=== PATIENT | male | born 1940 | race Caucasian/White ===

== ENCOUNTER → 2016-02-21 | Outpatient (CLI) | payer OTHER ==
[~2016-02-21] MED LIST: AZILECT1 MG PO; COUMADIN 3 MG TA3 M1 PO; COUMADIN 4 MG TA4 M1 PO; FINASTERIDE5 MG PO; LISINOPRIL20 MG PO; METFORMIN HCL500 MG PO; NEURONTIN 300300 M1 PO; PREVNAR 13 SYR0.5 ML IM; PRIMIDONE50 MG PO; SIMVASTATIN40 MG PO; SINEMET 25-1001 EAC1 PO; TOPROL XL25 MG PO; TRAMADOL 50 MG50 MG PO; VENLAFAXIN75 MG/1 T2 PO; VENLAFAXINE HC150 M1 PO
== END ==
LOC: RAD 10:35
DX: M19.011 Primary osteoarthritis, right shoulder (principal); M25.511 Pain in right shoulder; M25.512 Pain in left shoulder

== ENCOUNTER → 2016-11-14 | Outpatient (CLI) | payer OTHER ==
--- NOTE | ~2016-11-14 | 2DMMODE ---
[facility] [address] [place] [address] 2 D/M-MODE ECHOCARDIOGRAM Name: TK MURCIA [facility] [id number] Admission: 11/14/16 Attend Phys: Vicente Bejarano Discharge: Date of : 40 Date of Service: 11/14/16 1226 Report #: [id number] THIS REPORT FOR: //name// APPROVED REPORT Study performed: 11/14/2016 11:04:13 EXAM: Comprehensive 2D, Doppler, and color-flow Echocardiogram Patient Location: Out-Patient Room #: Echo lab Status: routine BSA: 2.13 HR: 91 bpm BP: 136/72 mmHg Other Information Study Quality: Adequate Indications Diabetes CAD 2D Dimensions RVDd: 33.37 mm LVEF(%): 24.74 (>50%) IVSd: 11.28 (7-11mm) LVOT Diam: 25.37 (18-24mm) LVDd: 56.56 mm PWd: 11.50 (7-11mm) Ascending Ao: 36.09 (22-36mm) LVDs: 50.01 (25-40mm) Aortic Root: 41.29 mm IVC: 19.00 mm Mabry's LVEF: 24.74 % Volumes Left Atrial Volume (Systole) Single Plane 4CH: 50.79 mL Single Plane 2CH: 70.18 mL LA ESV Index: 30.00 mL/m2 Aortic Valve AoV Peak Vikas.: 2.05 m/s AO Peak Gr.: 16.84 mmHg LVOT Max P.46 mmHg LVOT Max V: 0.78 m/s JOE Vmax: 1.93 cm2 Pulmonary Valve PV Peak Vikas.: 0.93 m/s PV Peak Gr.: 3.45 mmHg [facility] [place] [address] 2 D/M-MODE ECHOCARDIOGRAM Name: TK MURCIA [facility] Room #: [facility] [id number] Admission: 11/14/16 Attend Phys: Vicente Bejarano Discharge: Date of : 40 Date of Service: 11/14/16 1226 Report #: [id number] Left Ventricle Left ventricle is at the upper limits of normal. There is global hypokinesis of the left ventricle. There is normal left ventricular wall thickness. Left ventricular ejection fraction is moderately decreased. LVEF is 30-35%. This study is not technically sufficient to allow evaluation of the LV diastolic function. Right Ventricle The right ventricle is normal size. The right ventricular systolic function is normal. Atria The left atrium size is normal. The right atrium size is normal. Aortic Valve The aortic valve is normal in structure. Aortic valve is calcified. Mild aortic regurgitation. Mild aortic stenosis. Mitral Valve The mitral valve is normal in structure. There is no mitral valve regurgitation noted. No evidence of mitral valve stenosis. Tricuspid Valve The tricuspid valve is normal in structure. There is no tricuspid valve regurgitation noted. Pulmonic Valve The pulmonary valve is normal in structure. Trace pulmonic regurgitation. Great Vessels The aortic root is normal in size. IVC is normal in size and collapses >50% with inspiration. Pericardium There is no pericardial effusion. <Conclusion> Left ventricle is at the upper limits of normal. There is global hypokinesis of the left ventricle. Left ventricular ejection fraction is moderately decreased. LVEF is 30%. The aortic valve is normal in structure. Aortic valve is calcified. [facility] [address] [place] [address] 2 D/M-MODE ECHOCARDIOGRAM Name: TK MURCIANITH Room #: REG [facility]#: [id number] Admission: 11/14/16 Attend Phys: Vicente Bejarano Discharge: Date of : 40 Date of Service: 11/14/16 1226 Report #: [id number] Mild aortic regurgitation. Mild aortic stenosis. The mitral valve is normal in structure. The tricuspid valve is normal in structure. The pulmonary valve is normal in structure. Trace pulmonic regurgitation. <ELECTRONICALLY SIGNED> By: Vicente Montague MD 11/14/16 1226 122 1226 Vicente Montague MD /INF
== END ==
LOC: CV 08:24
DX: I25.10 Atherosclerotic heart disease of native coronary artery without angina pectoris (principal); E11.9 Type 2 diabetes mellitus without complications

== ENCOUNTER → 2017-05-18 | Outpatient (CLI) | payer OTHER ==
[~2017-05-18] VITALS: Ht 177.8 cm; Wt 81.7 kg
[~2017-05-18] MED LIST changes: +APAP650 PO; +ASPIR 8181 MG PO; +FISH OIL 1,001000 M2 PO; +RYTARY ER 61.21 EACH PO; +TAMSULOSIN HCL0.4 MG PO; +ZANTAC 150MG T150 MG PO
--- NOTE | ~2017-05-18 | P ---
[facility] [place] [address] PROCEDURE REPORT Name: TK MURCIA [facility] [id number] Admission: 05/18/17 Attend Phys: Eddie Martinez Discharge: Date of : 40 Report #: [id number] THIS REPORT FOR: //name// CC: Eddie Bermeo MD DATE OF SERVICE: 05/18/2017 PROCEDURE PERFORMED: Upper endoscopy with biopsies. HISTORY OF PRESENT ILLNESS: The patient is a 77-year-old male with a history of nausea, vomiting and weight loss. This has been ongoing for several months. He has decreased appetite. He does have a history of Parkinson's and diabetes. He denies any dysphagia. He denies any abdominal pain. Zantac was started recently with minimal benefit. He is on aspirin on a daily basis. Plan is for upper endoscopy. DESCRIPTION OF PROCEDURE: The risks and benefits of the procedure were explained to the patient, those risks including but not limited to bleeding, perforation, the risk of sedation. He understood these risks and gave informed consent. Sedation was given using propofol per anesthesia. Next, using a standard Excordan upper endoscope, the scope was placed in the patient's mouth and advanced under direct vision through the esophagus, stomach and into the second portion of the duodenum. The larynx was normal in appearance. The esophagus was normal throughout. The GE junction was normal. Overall, the gastric mucosa was normal. Biopsies were obtained to rule out the possibility of H. pylori. The pylorus was normal and patent. The duodenal bulb, first and second portion were all normal. Biopsies were obtained also to rule out the possibility of celiac sprue. The scope was then withdrawn and the procedure terminated. The patient tolerated the procedure well. IMPRESSION: Normal upper endoscopy. RECOMMENDATIONS: 1. Await biopsy results. 2. We will add Zofran on a p.r.n. basis. 3. We will proceed with a gastric emptying study next. Thank you for allowing me to participate in his care. <ELECTRONICALLY SIGNED> By: Eddie Knight MD 05/19/17 [id number] [id number] Eddie Knight MD /nt
--- NOTE | ~2017-05-18 | S ---
[facility] [place] [address] SURGICAL PATH RPT PROCEDURE Name: MIC MURCIA Room #: REG CLLinda Jesse#: [id number] Admission: 05/18/17 Date of : 40 Discharge: Report #: [id number] Path Case #: [id number] PATHOLOGY REPORT COLLECTION DATE: 05/18/2017 RECEIVED DATE: 05/18/2017 SUBMITTING PHYS: Dr. Eddie Knight OTHER PHYS: Dr. Jeremy Bermeo SPECIMEN(S) RECEIVED: A.Bx of duodenum r/o sprue B.Gastric bx r/o h. Pylori * * * * * * * * * * * * FINAL DIAGNOSIS: A. Small bowel mucosa, duodenum rule out sprue, endoscopic biopsy: - No diagnostic abnormalities present. - Negative for villous blunting or increase in intraepithelial lymphocytes. B. Gastric mucosa, gastric rule out H. pylori, endoscopic biopsy: - Helicobacter pylori induced mild active gastritis. - Negative for intestinal metaplasia or dysplasia. COMMENT: Well-controlled Helicobacter pylori immunohistochemical stain performed on block B1-few to rare organisms identified consistent with the diagnosis rendered. (IUV:mgr; 05/21/2017) PATHOLOGIST: Prachi Lagos M.D. REPORT ELECTRONICALLY SIGNED BY: Prachi Lagos M.D. DATE/TIME: 05/21/2017 13:43 * * * * * * * * * * * * GROSS PATHOLOGY: A. Received in formalin labeled "Garland Twin, BX of duodenum, rule out sprue," are 4 segments of felder soft tissue measuring 1.1 x 0.8 x 0.3 cm in aggregate dimensions and ranging from 0.2 to 0.5 cm in maximum dimension. The specimen is submitted entirely in cassette A1. B. Received in formalin labeled "Mic [place] gastric BX, rule out H. pylori," are 2 segments of felder soft tissue measuring 0.9 x 0.3 x 0.3 cm in aggregate dimensions and ranging from 0.4 to 0.5 cm in maximum dimension. The specimen is submitted entirely in cassette B1. (TSD; 05/18/2017) [address] [address] SURGICAL PATH RPT PROCEDURE Name: TWIN,MIC RICHARD Room #: REG [facility].#: [id number] Admission: 05/18/17 Date of : 40 Discharge: Report #: [id number] Path Case #: [id number] CLINICAL HISTORY: Pre-OP DX: Weight loss, vomiting Post-OP DX: Nausea with vomiting, weight loss INITIAL CPT CODE(S): A; 58617 B; 05877, 51334 Professional services performed by [facility] at [address], [place] [address] Technical services performed by [facility] at [address] [place] [address], [address] [address]. [facility] [address] [address] PHONE: [phone] DIRECTOR: Twin Washington M.D. * * * END OF REPORT * * *
== END | disposition home or self-care (01) ==
LOC: GI 06:43
DX: K29.00 Acute gastritis without bleeding (principal); B96.81 Helicobacter pylori [H. pylori] as the cause of diseases classified elsewhere; I10 Essential (primary) hypertension; E11.9 Type 2 diabetes mellitus without complications; E78.5 Hyperlipidemia, unspecified; I73.89 Other specified peripheral vascular diseases; G20 Parkinson's disease; G47.33 Obstructive sleep apnea (adult) (pediatric); M06.9 Rheumatoid arthritis, unspecified; F32.9 Major depressive disorder, single episode, unspecified; F41.9 Anxiety disorder, unspecified; Z96.643 Presence of artificial hip joint, bilateral; Z95.1 Presence of aortocoronary bypass graft; Z87.891 Personal history of nicotine dependence; Z98.41 Cataract extraction status, right eye; Z98.42 Cataract extraction status, left eye; Z88.2 Allergy status to sulfonamides; Z79.82 Long term (current) use of aspirin; Z79.899 Other long term (current) drug therapy
CPT/HCPCS: 62110; 62900